=== PATIENT | male | born 1940 | race Hispanic/Latino ===

== ENCOUNTER 2020-05-29 09:00 | Outpatient (CLI) | payer OTHER ==
--- NOTE | 2020-05-29 12:23 | Anesthesia Consultation ---
Anesthesia Consult and Med Hx Date of service: 06/02/20 - Airway Anesthetic Teeth Evaluation: Dentures, Edentulous ROM Head & Neck: Adequate Mental/Hyoid Distance: Adequate Mallampati Class: Class III Intubation Access Assessment: Probably Good - Pre-Operative Health Status ASA Pre-Surgery Classification: ASA3 Proposed Anesthetic Plan: General - Pulmonary Hx Smoking: Yes (Former) Hx Respiratory Symptoms: No (+2FS) COPD: Yes ("a touch") - Cardiovascular System Hx Hypertension: Yes Hx Coronary Artery Disease: Yes Hx Heart Attack/AMI: Yes (2018) Hx Percutaneous Transluminal Coronary Angioplasty (PTCA): No (CABG 2018; denies cardiac symptoms and doesn't see a life skills coach) - Central Nervous System Hx Neuromuscular Disorder: Yes (Blind OD; macular degeneration. Tinnitus) Hx Psychiatric Problems: No - Gastrointestinal Hx Ulcer: Yes Hx Gastroesophageal Reflux Disease: Yes - Endocrine Hx Renal Disease: No Hx Cirrhosis: No Hx Non-Insulin Dependent Diabetes: No Hx Thyroid Disease: No - Other Systems Hx Cancer: No - Additional Comments Anesthesia Medical History Comments: hallucinated postop after CABG; combative postop after another surgery
[2020-05-29 12:43] LABS: Basophils % (Auto) 0.1 % (0.0-1.8); Hematocrit 37.1 % (35.5-45.6); Hemoglobin 12.7 gm/dl (11.8-15.2); Lymphocytes # (Auto) 1.7 K/mm3 (1.2-5.4); Lymphocytes % (Auto) 20.7 % (13.4-35.0); Mean Corpuscular HGB Conc 34 % (32-34); Mean Corpuscular Volume 91 fl (84-94); Monocytes # (Auto) 0.6 K/mm3 (0.0-0.8); Platelet Count 229 K/mm3 (140-440); Red Blood Count 4.09 M/mm3 (3.65-5.03); Red Cell Distribution Width 14.3 % (13.2-15.2)
[2020-05-29 12:56] VITALS: BP 128/73
[2020-05-29 13:03] LABS: Alanine Aminotransferase 16 units/L (7-56); Albumin 3.9 g/dL (3.9-5); BUN/Creatinine Ratio 19; Blood Urea Nitrogen 21 mg/dL (9-20); Calcium 9.2 mg/dL (8.4-10.2); Hemolysis Index 13
[2020-06-02] MEDS ORDERED: MAGNESIUM OXIDE 400 MG TAB PO NR (06:00)
[2020-06-02] MEDS ORDERED: ACETAMINOPHEN 325 MG TAB PO NR (06:00)
[2020-06-02] MEDS ORDERED: LACTATED RINGERS 1,000 ML IV SCH (06:00)
== END 2020-05-29 11:00 | disposition home or self-care (01) ==
LOC: LAB 09:00 → EDSTATUS 06-02 08:00
PROVIDERS: ATTEND Urology
DX: Z20.828 Contact with and (suspected) exposure to other viral communicable diseases (principal); R33.8 Other retention of urine
CPT/HCPCS: 36415; 80053; 85025; 93005; U0003